=== PATIENT | female | born 1990 | race Two or more races ===

== ENCOUNTER 2019-10-23 14:05 | Emergency (ER) | payer SELFPAY ==
[~2019-10-23] VITALS: Ht 167.6 cm; Wt 61.4 kg
[2019-10-23] MEDS ORDERED: KETOROLAC TROMETHAMINE 30 MG/ML VIAL IM ONE (16:30)
[2019-10-23] MEDS ORDERED: ACETAMINOPHEN 500 MG TABLET PO ONE (18:30)
[2019-10-23 20:15] VITALS: BP 121/73
== END 2019-10-23 20:17 | disposition home or self-care (01) ==
LOC: EMS 14:07
DX: S39.012A Strain of muscle, fascia and tendon of lower back, initial encounter (principal); X50.0XXA Overexertion from strenuous movement or load, initial encounter; Y93.89 Activity, other specified; Y92.89 Other specified places as the place of occurrence of the external cause; Y99.0 Civilian activity done for income or pay
CPT/HCPCS: 72100; 81025; 96372; 99283; J1885